=== PATIENT | female | born 1965 | race Two or more races ===

== ENCOUNTER 2017-05-07 00:08 | Emergency (ER) | payer OTHER ==
[2017-05-07 00:34] VITALS: BP 126/77; BMI 32.8
--- NOTE | 2017-05-07 01:52 | PDOC ---
History of Present Illness <RichiVinitacoco Fitch - Last Filed: 05/07/17 02:01> - History of Present Illness Initial Comments: 05/07/17 01:53 52 equatorial guinean-speaking F, with no significant PMHx, who presents with knee pain for several weeks. Patient states that she has been having knee pain and feels balls on her legs. She also reports nausea, loose stools, weakness, and body aches. She denies recent vomit, constipation. Denies recent chest pain, SOB, fevers, chills. She denies recent dysuria, urgency frequency, or hematuria. She is able to ambulate without assistance. Allergies: benadryl Surgery: spine surgery (7 years ago.) <Regla Castellano - Last Filed: 05/07/17 02:04> - General Chief Complaint: Blood Pressure Problem Stated Complaint: HIGH BP Time Seen by Provider: 05/07/17 00:43 Past History - Past Medical History COPD: No Other medical history: Pt denies - Immunization History Immunization Up to Date: Yes - Suicide/Smoking/Psychosocial Hx Smoking History: Never smoked Have you smoked in the past 12 months: No Number of Cigarettes Smoked Daily: 0 Cigars Per Day: 0 Information on smoking cessation initiated: No Hx Alcohol Use: No Drug/Substance Use Hx: No Substance Use Type: None <RichiVinitacoco Fitch - Last Filed: 05/07/17 02:01> <Regla Castellano - Last Filed: 05/07/17 02:04> - Past Medical History Allergies/Adverse Reactions: Allergies Allergy/AdvReac Type Severity Reaction Status Date / Time diphenhydramine HCl Allergy Verified 05/07/17 00:31 [From Benadryl] Home Medications: Ambulatory Orders Ibuprofen [Motrin -] 600 mg PO QID #120 tablet 03/26/16 Review of Systems - Review of Systems Comments:: 05/07/17 01:53 CONSTITUTIONAL: Present: generalized weakness, body aches. Absent: fever, no fatigue EYES: Absent: visual changes ENT: Absent: ear pain, no sore throat CARDIOVASCULAR: Absent: chest pain, no palpitations RESPIRATORY: Absent: cough, no SOB GI: Present: nausea, diarrhea Absent: abdominal pain, no vomiting, no constipation GENITOURINARY: Absent: dysuria, no frequency, no hematuria MUSCULOSKELETAL: Present: b/l knee pain, b/l leg pain, Absent: back pain SKIN: Absent: rash NEURO: Absent: headache <Regla Castellano - Last Filed: 05/07/17 02:04> *Physical Exam - Vital Signs Last Vital Signs Temp Pulse Resp BP Pulse Ox 97.9 F 68 20 126/77 98 05/07/17 00:31 05/07/17 00:31 05/07/17 00:31 05/07/17 00:31 05/07/17 00:31 <Vinita Stoddard - Last Filed: 05/07/17 02:01> - Vital Signs Last Vital Signs Temp Pulse Resp BP Pulse Ox 97.9 F 68 20 126/77 98 05/07/17 00:31 05/07/17 00:31 05/07/17 00:31 05/07/17 00:31 05/07/17 00:31 - Physical Exam Comments: 05/07/17 01:54 GENERAL: Well-appearing, well-nourished. No apparent distress. HEENT: Normocephalic, atraumatic. PERRL, EOM intact. CARDIOVASCULAR: Normal S1, S2. Regular rate and rhythm. PULMONARY: Clear to auscultation bilaterally. ABDOMEN: Soft, non-distended, non-tender. EXTREMITIES: Normal ROM in all four extremities - full flexion and extension. No gross deformities. LE - no masses appreciated on upper thighs. No evidence of induration, cellulitis, or abscesses. SKIN: Warm, dry. No rash. Chronic skin discoloration. NEUROLOGICAL: No focal neurological deficits.Ambulates w/out assistance. <Regla Castellano - Last Filed: 05/07/17 02:04> *DC/Admit/Observation/Transfer <Vinita Stoddard - Last Filed: 05/07/17 02:01> - Attestations Scribe Attestion: 05/07/17 02:04 Documentation prepared by Regla Castellano, acting as medical imaging technician for Vinita Stoddard MD. <Regla Castellano - Last Filed: 05/07/17 02:04> Diagnosis at time of Disposition: Knee pain, bilateral Qualifiers: Chronicity: acute Qualified Code(s): M25.561 - Pain in right knee - Referrals Referrals: Star Pabon MD [Staff Physician] - - Patient Instructions Printed Discharge Instructions: DI for Knee Pain Additional Instructions: Please folllow up with your doctor You may call a orthopedist for persistent or worsening symptoms take tylenol or ibuprofen for pain Print Language: MEXICAN
[2017-05-07 02:11] VITALS: PULSE 70; TEMP 97.8
== END 2017-05-07 02:11 | disposition home or self-care (01) ==
LOC: JER 00:08
DX: M25.562 Pain in left knee (principal); M25.561 Pain in right knee
CPT/HCPCS: 99281-25

== ENCOUNTER 2018-02-22 08:40 | Emergency (ER) | payer OTHER ==
[2018-02-22 08:50] VITALS: BP 130/72; PULSE 72; TEMP 98.5; BMI 15.0
[2018-02-22] MEDS ORDERED: KETOROLAC TROMETHAMINE 60 MG/2 ML VIAL ONE (09:29)
[2018-02-22] MEDS ORDERED: KETOROLAC TROMETHAMINE 60 MG/2 ML VIAL IM ONE (09:29)
--- NOTE | 2018-02-22 09:34 | PDOC ---
History of Present Illness - General Chief Complaint: Pain, Acute Stated Complaint: PAIN Time Seen by Provider: 02/22/18 09:08 History Source: Patient Exam Limitations: No Limitations - History of Present Illness Initial Comments: 02/22/18 09:29 with German interpretor: complaints of pain over all of body for over a week . Patient states took gabapentin this morning which is made her exceedingly tired. When able to arouse and discuss ER complaints with certified medical aide /vp & general counsel patient states has had pain for many months, has had no changes in exercise or activity. It has taken no medication for relief of same. Suffers from chronic back pain with radiation, and has not attempted to see her doctor recently. Denies fever, cough shortness of breath or URI symptoms. 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 02/22/18 14:56 02/22/18 15:07 Occurred: reports: last week Pain Location: reports: back Method of Injury: Yes: unknown Modifying Factors: improves with: None Past History - Travel Traveled outside of the country in the last 30 days: No Close contact w/someone who was outside of country & ill: No - Past Medical History Allergies/Adverse Reactions: Allergies Allergy/AdvReac Type Severity Reaction Status Date / Time diphenhydramine HCl Allergy Verified 02/22/18 08:45 [From Benadryl] Home Medications: Ambulatory Orders Gabapentin [Neurontin -] 300 mg PO Q8H 02/22/18 Meloxicam [Mobic] 15 mg PO DAILY 02/22/18 COPD: No - Immunization History Immunization Up to Date: Yes - Suicide/Smoking/Psychosocial Hx Smoking History: Smoker current status UNK Have you smoked in the past 12 months: No Number of Cigarettes Smoked Daily: 0 Cigars Per Day: 0 Hx Alcohol Use: No Drug/Substance Use Hx: No Substance Use Type: None Review of Systems - Review of Systems Able to Perform ROS?: Yes Is the patient limited Syriac proficient: Yes Constitutional: Yes: Symptoms Reported, See HPI, Malaise HEENTM: No: Symptoms Reported Respiratory: No: Symptoms reported Cardiac (ROS): No: Symptoms Reported ABD/GI: No: Symptoms Reported All Other Systems: Reviewed and Negative *Physical Exam - Vital Signs Last Vital Signs Temp Pulse Resp BP Pulse Ox 98.5 F 72 16 130/72 99 02/22/18 08:46 02/22/18 08:46 02/22/18 08:46 02/22/18 08:46 02/22/18 08:46 - Physical Exam General Appearance: Yes: Nourished, Appropriately Dressed, Apparent Distress, Mild Distress HEENT: positive: ARTEMIO, Normal ENT Inspection, TMs Normal, Pharynx Normal. negative: Rhinorrhea Neck: positive: Supple. negative: Tender Respiratory/Chest: positive: Lungs Clear. negative: Chest Tender Gastrointestinal/Abdominal: positive: Normal Bowel Sounds, Soft. negative: Tender Musculoskeletal: positive: Normal Inspection, Muscle Spasm (palpable tight spasm to the paravertebral spinous muscles bilateral lumbar area worse on the right than the left. He is ambulatory but walks with a list to the right. Neurovascular intact to feet). negative: CVA Tenderness, CVA Tenderness (L), Vertebral Tenderness Extremity: positive: Normal Capillary Refill, Normal Inspection. 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 intact, Alert, Normal Mood/Affect, Normal Response, Motor Strength 5/5 Moderate Sedation - Procedure Monitoring Vital Signs: Procedure Monitoring Vital Signs Temperature 98.5 F 02/22/18 08:46 Pulse Rate 72 02/22/18 08:46 Respiratory Rate 16 02/22/18 08:46 Blood Pressure 130/72 02/22/18 08:46 O2 Sat by Pulse Oximetry (%) 99 02/22/18 08:46 Progress Note - Progress Note Progress Note: Acute on chronic back pain, some relief with IM Toradol and gives short course of cyclobenzaprine *DC/Admit/Observation/Transfer Diagnosis at time of Disposition: Acute exacerbation of chronic low back pain - Discharge Dispostion Disposition: HOME Condition at time of disposition: Stable Decision to Admit order: No - Referrals - Patient Instructions Printed Discharge Instructions: DI for Back Strain or Sprain Additional Instructions: Rest, no heavy lifting or exercise until pain is resolved Hot soaks to neck and low back as often as possible/hot showers or Jacuzzis No massage or therapy until spasm is gone Continue Naprosyn 500 mg tablet, 1 tablet every 12 hours for the next 3 days then as needed for pain and swelling If not significant improvement within 24 hours with medication and rest regime, followup with private physician for change in medications and /or therapy. moises Mendozas pesados ??ni eileen ejercicio hasta que se resuelva el dolor. Remojos calientes en el aniket y la espalda baja con la mayor frecuencia posible / duchas calientes o jacuzzis Ningn masaje o terapia hasta que el espasmo haya desaparecido. Contine Naprosyn 500 mg comprimido, 1 comprimido cada 12 horas oral los prximos 3 haynes y luego segn sea necesario para el dolor y la hinchazn Si no hay jeffrey mejora significativa dentro de las 24 horas con medicamentos y rgimen de descanso, eileen un seguimiento con un mdico privado para cambiar los medicamentos y / o la terapia. - Post Discharge Activity Forms/Work/School Notes: Back to Work
== END 2018-02-22 09:56 | disposition home or self-care (01) ==
LOC: JER 08:40 → JERFT 08:40
PROC: 3E0233Z Introduction of Anti-inflammatory into Muscle, Percutaneous Approach (ICD-10-PCS; principal; 2018-02-22)
DX: M54.5 Low back pain (principal); G89.29 Other chronic pain; F17.210 Nicotine dependence, cigarettes, uncomplicated
CPT/HCPCS: 99281-25

== ENCOUNTER 2021-01-19 18:47 | Emergency (ER) | payer OTHER ==
[2021-01-19 18:51] VITALS: BP 131/91; PULSE 101; BMI 32.0
[2021-01-19] MEDS ORDERED: ACETAMINOPHEN 1000 MG/100 ML VIAL IVPB ONE (20:15)
[2021-01-19] MEDS ORDERED: ACETAMINOPHEN INJECTION 100 ML IVPB ONE (20:37)
[2021-01-19 20:47] LABS: HEMATOCRIT 39.8 % (32.4-45.2); HEMOGLOBIN 13.6 GM/dL (10.7-15.3); MCH 30.9 pg (25.7-33.7); MCHC 34.2 g/dl (32.0-36.0); MEAN CELL VOLUME 90.5 fl (80-96); MEAN PLT VOLUME 9.5 fl (7.5-11.1); PLATELET COUNT 248 10^3/uL (134-434); RDW 13.2 % (11.6-15.6); WHITE BLOOD COUNT 6.7 K/mm3 (4.0-10.0)
[2021-01-19 21:18] LABS: CHLORIDE 111 mmol/L (98-107); SODIUM 144 mmol/L (136-145)
[2021-01-19 21:20] LABS: ALBUMIN 3.4 g/dl (3.4-5.0); ANION GAP 10 MMOL/L (8-16); BLOOD UREA NITROGEN 11.3 mg/dL (7-18); CO2 22 mmol/L (21-32); GLUCOSE,RANDOM 96 mg/dL (74-106)
[2021-01-19 21:23] LABS: SGOT/AST 25 U/L (15-37); SGPT/ALT 23 U/L (13-61)
[2021-01-19 21:24] LABS: CREATININE 0.9 mg/dL (0.55-1.3)
[2021-01-19 21:25] LABS: BILIRUBIN,TOTAL 0.3 mg/dL (0.2-1); TOT PROT 7.2 g/dl (6.4-8.2)
[2021-01-19 21:26] LABS: ALK PHOS 83 U/L (45-117)
== END 2021-01-19 22:40 | disposition home or self-care (01) ==
LOC: JER 18:47
PROC: 3E033NZ Introduction of Analgesics, Hypnotics, Sedatives into Peripheral Vein, Percutaneous Approach (ICD-10-PCS; principal; 2021-01-19)
DX: F43.0 Acute stress reaction (principal); R42 Dizziness and giddiness
CPT/HCPCS: 36415; 80053; 82550; 82553; 82962; 84484; 85027; 93005; 93010; 99284-25; J0131

== ENCOUNTER 2023-10-13 08:22 | Emergency (ER) | payer OTHER ==
[2023-10-13 08:32] VITALS: BP 120/81; PULSE 61; RESP 16; TEMP 97.6; BMI 42.5
[2023-10-13] MEDS ORDERED: IBUPROFEN 600 MG TABLET (FP) PO ONE (09:11)
[2023-10-13] MEDS ORDERED: ACETAMINOPHEN 500 MG TABLET (FP) ONE (09:12)
[2023-10-13] MEDS: IBUPROFEN 600 MG TABLET (FP) PO ONE (09:33)
[2023-10-13] MEDS: ACETAMINOPHEN 500 MG TABLET (FP) PO ONE (09:34)
== END 2023-10-13 10:06 | disposition home or self-care (01) ==
LOC: JERFT 08:22
DX: M17.0 Bilateral primary osteoarthritis of knee (principal); M19.041 Primary osteoarthritis, right hand; M19.042 Primary osteoarthritis, left hand
CPT/HCPCS: 73130-TC-LT-FY; 73130-TC-RT-FY; 73560-TC-LT-FY; 73560-TC-RT-FY; 99284-25

== ENCOUNTER 2023-10-14 05:26 | Emergency (ER) | payer OTHER ==
[2023-10-14 05:34] VITALS: BMI 26.4
[2023-10-14] MEDS: DEXAMETHASONE SOD PHOSPHATE 10 MG/1 ML VIAL IM ONE (06:22)
[2023-10-14] MEDS: FOLIC ACID INJECTION - 1 MG, THIAMINE HCL 100 MG, MULTIVIT INJECTION ADULT 10 ML in SOD... IVPB ONE (06:22)
[2023-10-14 06:48] LABS: BASO % 0.5 % (0-2.0); HEMATOCRIT 37.1 % (32.4-45.2); HEMOGLOBIN 12.6 GM/dL (10.7-15.3); LYMPH % 27.1 % (8-40); MCH 30.6 pg (25.7-33.7); MCHC 34.1 g/dl (32.0-36.0); MEAN CELL VOLUME 89.9 fl (80-96); MEAN PLT VOLUME 9.8 fl (7.5-11.1); MONO % 6.1 % (3.8-10.2); NEUT % 66.3 % (42.8-82.8); PLATELET COUNT 287 10^3/uL (134-434); RBC 4.13 M/mm3 (3.60-5.2); RDW 13.6 % (11.6-15.6); WHITE BLOOD COUNT 6.5 K/mm3 (4.0-10.0)
[2023-10-14 06:50] LABS: POTASSIUM 5.6 mmol/L (3.5-5.1)
[2023-10-14 06:52] LABS: CALCIUM 8.3 mg/dL (8.5-10.1)
[2023-10-14 06:53] LABS: ALBUMIN 2.8 g/dl (3.4-5.0); BLOOD UREA NITROGEN 11.8 mg/dL (7-18)
[2023-10-14 06:56] LABS: CREATININE 0.9 mg/dL (0.55-1.3)
[2023-10-14 06:57] LABS: BILIRUBIN,TOTAL 0.5 mg/dL (0.2-1); TOT PROT 7.2 g/dl (6.4-8.2)
[2023-10-14 08:56] VITALS: BP 107/70; PULSE 66; RESP 20; TEMP 98.5
[2023-10-14] MEDS ORDERED: KETOROLAC TROMETHAMINE 15 MG/ML VIAL ONE (09:04)
[2023-10-14] MEDS: KETOROLAC TROMETHAMINE 15 MG/ML VIAL IVPUSH ONE (09:12)
[2023-10-14 09:53] LABS: ERYTHROCYTE SEDIMENTATION RATE 22 mm/hr (0-30)
== END 2023-10-14 09:35 | disposition home or self-care (01) ==
LOC: JER 05:26
PROC: 3E033GC Introduction of Other Therapeutic Substance into Peripheral Vein, Percutaneous Approach (ICD-10-PCS; principal; 2023-10-14)
PROC: 3E033GC Introduction of Other Therapeutic Substance into Peripheral Vein, Percutaneous Approach (ICD-10-PCS; 2023-10-14)
PROC: 3E033GC Introduction of Other Therapeutic Substance into Peripheral Vein, Percutaneous Approach (ICD-10-PCS; 2023-10-14)
PROC: 3E033GC Introduction of Other Therapeutic Substance into Peripheral Vein, Percutaneous Approach (ICD-10-PCS; 2023-10-14)
PROC: 3E033GC Introduction of Other Therapeutic Substance into Peripheral Vein, Percutaneous Approach (ICD-10-PCS; 2023-10-14)
PROC: 3E033GC Introduction of Other Therapeutic Substance into Peripheral Vein, Percutaneous Approach (ICD-10-PCS; 2023-10-14)
PROC: 3E033GC Introduction of Other Therapeutic Substance into Peripheral Vein, Percutaneous Approach (ICD-10-PCS; 2023-10-14)
PROC: 3E033GC Introduction of Other Therapeutic Substance into Peripheral Vein, Percutaneous Approach (ICD-10-PCS; 2023-10-14)
PROC: 3E0333Z Introduction of Anti-inflammatory into Peripheral Vein, Percutaneous Approach (ICD-10-PCS; 2023-10-14)
PROC: 3E023GC Introduction of Other Therapeutic Substance into Muscle, Percutaneous Approach (ICD-10-PCS; 2023-10-14)
DX: M25.541 Pain in joints of right hand (principal); M25.542 Pain in joints of left hand; M25.561 Pain in right knee; M25.562 Pain in left knee
CPT/HCPCS: 36415; 80053; 84550; 85025; 85651; 86140; 86618; 99284-25; J1100

== ENCOUNTER 2023-10-18 00:07 | Emergency (ER) | payer OTHER ==
[2023-10-18 00:16] VITALS: BMI 38.5
[2023-10-18] MEDS ORDERED: predniSONE 20 MG TABLET (UD) ONE (01:10)
[2023-10-18] MEDS ORDERED: KETOROLAC TROMETHAMINE 30 MG/1 ML VIAL ONE (01:11)
[2023-10-18] MEDS: predniSONE 20 MG TABLET (UD) PO ONE (01:14)
[2023-10-18] MEDS: KETOROLAC TROMETHAMINE 30 MG/1 ML VIAL IM ONE (01:14)
[2023-10-18 01:49] VITALS: BP 108/68; PULSE 68; RESP 12; TEMP 99.2
== END 2023-10-18 02:05 | disposition home or self-care (01) ==
LOC: JER 00:07
PROC: 3E0233Z Introduction of Anti-inflammatory into Muscle, Percutaneous Approach (ICD-10-PCS; principal; 2023-10-18)
DX: M19.031 Primary osteoarthritis, right wrist (principal); M17.0 Bilateral primary osteoarthritis of knee; M19.032 Primary osteoarthritis, left wrist; Z20.822 Contact with and (suspected) exposure to COVID-19
CPT/HCPCS: 0241U-QW; 99284-25

== ENCOUNTER 2023-11-01 10:50 | Emergency (ER) | payer OTHER ==
[2023-11-01 11:20] VITALS: BP 104/74; PULSE 72; RESP 16; TEMP 98.2; BMI 27.4
== END 2023-11-01 11:46 | disposition home or self-care (01) ==
LOC: JERFT 10:50
DX: M13.80 Other specified arthritis, unspecified site (principal)
CPT/HCPCS: 99283-25

== ENCOUNTER 2023-11-18 11:11 | Emergency (ER) | payer OTHER ==
[2023-11-18 11:24] VITALS: BP 114/82; PULSE 71; RESP 17; TEMP 98.3; BMI 28.1
== END 2023-11-18 12:22 | disposition home or self-care (01) ==
LOC: JERFT 11:11
DX: M25.531 Pain in right wrist (principal); M25.431 Effusion, right wrist
CPT/HCPCS: 99283-25

== ENCOUNTER 2023-11-30 08:30 | Emergency (ER) | payer OTHER ==
[2023-11-30 08:41] VITALS: BP 115/78; PULSE 61; RESP 18; TEMP 97.5; BMI 26.4
== END 2023-11-30 09:32 | disposition home or self-care (01) ==
LOC: JERFT 08:30
DX: Z76.0 Encounter for issue of repeat prescription (principal)
CPT/HCPCS: 99281-25

== ENCOUNTER 2023-12-03 07:55 | Emergency (ER) | payer OTHER ==
[2023-12-03 08:02] VITALS: BP 129/79; PULSE 77; RESP 16; TEMP 97.7; BMI 28.1
[2023-12-03] MEDS ORDERED: ACETAMINOPHEN 325 MG TABLET (FP) ONE (08:48)
[2023-12-03] MEDS: ACETAMINOPHEN 500 MG TABLET (FP) PO ONE (08:51)
== END 2023-12-03 09:52 | disposition home or self-care (01) ==
LOC: JERFT 07:55
DX: M25.532 Pain in left wrist (principal); M25.561 Pain in right knee; M25.562 Pain in left knee
CPT/HCPCS: 99283-25

== ENCOUNTER 2023-12-17 07:43 | Emergency (ER) | payer OTHER ==
[2023-12-17 07:56] VITALS: BP 118/94; PULSE 99; RESP 16; TEMP 98.2; BMI 26.4
[2023-12-17] MEDS ORDERED: ACETAMINOPHEN 325 MG TABLET (FP) ONE (10:45)
[2023-12-17] MEDS: ACETAMINOPHEN 500 MG TABLET (FP) PO ONE (10:56)
[2023-12-17] MEDS ORDERED: KETOROLAC TROMETHAMINE 15 MG/ML VIAL ONE (11:29)
[2023-12-17] MEDS: KETOROLAC TROMETHAMINE 15 MG/ML VIAL IM ONE (11:35)
[2023-12-17] MEDS ORDERED: IBUPROFEN 600 MG TABLET (FP) PO ONE (16:10)
[2023-12-17] MEDS: IBUPROFEN 600 MG TABLET (FP) PO ONE (16:23)
[2023-12-18 15:12] LABS: HIV INTERPRETATION PRESUMPTIVE POSITIVE (NEGATIVE)
== END 2023-12-17 16:40 | disposition home or self-care (01) ==
LOC: JER 07:43
PROC: 3E0233Z Introduction of Anti-inflammatory into Muscle, Percutaneous Approach (ICD-10-PCS; principal; 2023-12-17)
DX: M25.511 Pain in right shoulder (principal); M25.521 Pain in right elbow; M25.531 Pain in right wrist; M25.561 Pain in right knee
CPT/HCPCS: 36415; 73562-TC-RT-FY; 86618; 86803; 87389; 99284-25

== ENCOUNTER 2024-01-06 18:07 | Emergency (ER) | payer OTHER ==
[2024-01-06 18:14] VITALS: RESP 18; TEMP 98.6; BMI 29.2
[2024-01-06] MEDS ORDERED: ACETAMINOPHEN 500 MG TABLET (FP) ONE (20:32)
[2024-01-06] MEDS: ACETAMINOPHEN 500 MG TABLET (FP) PO ONE (20:37)
[2024-01-06 21:36] VITALS: BP 117/69; PULSE 67
== END 2024-01-06 21:44 | disposition home or self-care (01) ==
LOC: JER 18:07
DX: M79.671 Pain in right foot (principal); M25.571 Pain in right ankle and joints of right foot; F32.A Depression, unspecified; X50.1XXA Overexertion from prolonged static or awkward postures, initial encounter
CPT/HCPCS: 73590-TC-RT-FY; 73630-TC-RT-FY; 99284-25

== ENCOUNTER 2024-01-07 02:02 | Emergency (ER) | payer OTHER ==
[2024-01-07 02:14] VITALS: BP 122/79; PULSE 79; RESP 16; TEMP 98.1; BMI 34.3
[2024-01-07 04:38] LABS: EPI CELLS 3 /uL (0-25.1); HYALINE CASTS 0 /uL (0-3.1); PH,URINE 6.5 (5.0-8.0); URINE APPEARANCE CLEAR; URINE BACTERIA 8 /uL (0-1359); URINE BILIRUBIN NEGATIVE (NEGATIVE); URINE COLOR YELLOW; URINE GLUCOSE (UA) NEGATIVE (NEGATIVE); URINE KETONE 2+ (NEGATIVE); URINE LEUK ESTERASE NEGATIVE (NEGATIVE); URINE NITRITE NEGATIVE (NEGATIVE); URINE PROTEIN NEGATIVE (NEGATIVE); URINE RBC 136 /uL (0-23.9); URINE UROBILINOGEN 0.2 mg/dL (0.2-1.0); URINE WBC 8 /uL (0-25.8)
== END 2024-01-07 05:25 | disposition home or self-care (01) ==
LOC: JER 02:02
DX: M54.50 Low back pain, unspecified (principal)
CPT/HCPCS: 81003; 87086; 99283-25